=== PATIENT | female | born 2000 | race Caucasian/White ===

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

== ENCOUNTER 2022-02-21 10:30 | Outpatient (RCR) | payer BC, SELFPAY ==
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
[2022-02-07 12:12] VITALS: BP 124/68; PULSE 80; RESP 16; TEMP 36.9
[2022-02-07 12:18] VITALS: BMI 41.8
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
--- NOTE | 2022-02-12 17:52 | P.PNPSP_ITS ---
Subjective Subjective Date of Service: 02/12/22 Reason For Visit: MDD,DASHAWN Interim History: patient presents for follow up Reports she is doing well in treatment and finds groups to be very helpful Did report some challenges with processing traumatic event that she hopes to work through during her time here Does not have any concerns related to medications at this time. Review of Systems Constitutional: Reports as per HPI and Reports no additional constitutional complaints Mental Status Exam Mental Status Exam Narrative: Well-developed, overweight female, in NAD. No tics or tremors, no abnormal movements, gait/ambulation normal. Patient Appearance: Appropriate Patient Orientation: Person, Place, Time and Situation Level of Consciousness: Appropriate Patient Behavior: Appropriate, Cooperative and Good Eye Contact Mood Description: Anxious Affect Description: Calm Patient Cognition Impaired: No Ability to Follow Directions: Good Speech Pattern: Clear, Appropriate and Coherent Memory Description: Intact Hallucinations: None Delusions: Not Present Thought Process: Intact Judgement: Fair Diagnostics Vital Signs (24Hr): BMI result Body Mass Index 41.8 Assessment & Plan Assessment & Plan (1) Post-traumatic stress disorder, unspecified: Status: Acute Code(s): F43.10 - Post-traumatic stress disorder, unspecified Assessment and Plan: * follow up as needed * no medication changes needed Certification I certify that partial hospital treatment is medically necessary due to the symptoms and problems resulting from the patient's mental illness and the failure to treat the patient at the partial hospital level of care would likely result in the patient requiring inpatient psychiatric care which could not be p revented at a less intensive level of care. I spent minutes with the patient and/or on the patient floor today, greater than?50% of which was spent counseling/coordinating care. Discharge Plan Discharge Attending provider: Aaron Torres Medications: New lamotrigine 25 mg tablet 25 mg PO DAILY 14 Days Qty: 14 0RF Discontinued buspirone [BuSpar] 5 mg Tablet 2.5 mg PO BID bupropion HCl [Wellbutrin SR] 100 mg Tablet Sustained-Release 12 Hr 200 mg PO DAILY hydroxyzine HCl 10 mg Tablet 10 mg PO TID PRN (Reason: Anxiety)
--- NOTE | 2022-02-13 15:07 | PC.NURSE ---
case opened in treatment team
--- NOTE | 2022-02-19 15:04 | HO.PHPPROGNO ---
Subjective Subjective Date of Service: 02/19/22 Reason For Visit: MDD,DASHAWN Medical Problems Affecting Mental Status: No Interim History: Reports has only taken Lamictal to times in past week, states that she forgets. Describes mood as ?stable today ?. Denies SI/HI, reports that she feels safe. Looking forward to going to a concert tomorrow in [place]. Finding groups helpful. Medication Compliance: Intermittent Side effects from medications: No Attending Groups: Yes Review of Systems Acute medical concerns: No Medical Review of Systems: unchanged Review of Systems Review of Systems Yes all other systems are reviewed and are negative Constitutional: Reports no additional constitutional complaints Mental Status Exam Mental Status Exam Narrative: NAD. No tics or tremors, no abnormal movements, gait/ambulation normal. Patient Appearance: Well Grooomed and Appropriate Patient Orientation: Person, Place, Time and Situation Level of Consciousness: Appropriate Patient Behavior: Appropriate, Cooperative and Good Eye Contact Mood Description: Calm and Appropriate Affect Description: Appropriate Patient Cognition Impaired: No Ability to Follow Directions: Good Speech Pattern: Clear, Appropriate and Coherent Memory Description: Intact Hallucinations: None Delusions: Not Present Thought Process: Intact Thought Content: positive for Intact Depressive Symptoms: Increased Anxiety Judgement: Fair Diagnostics Vital Signs (24Hr): BMI result Body Mass Index 41.8 Assessment & Plan Assessment & Plan (1) Major depressive disorder, recurrent severe without psychotic features: Status: Acute Code(s): F33.2 - Major depressive disorder, recurrent severe without psychotic features Assessment and Plan: Reports has only taken Lamictal to times in past week, states that she forgets. Reviewed medication, provided education. Encourage patient to take the 25 mg daily consistently, as this will be needed prior to being able to the increased dose to 50 mg daily. She stated that she would begin to take it daily. Describes mood as ?stable today ?. Patient states that she does not have any concerns at this time. Denies SI/HI, reports that she feels safe. Looking forward to going to a concert tomorrow in [place]. Finding groups helpful. (2) Post-traumatic stress disorder, unspecified: Status: Acute Code(s): F43.10 - Post-traumatic stress disorder, unspecified (3) DASHAWN (generalized anxiety disorder): Status: Acute Code(s): F41.1 - Generalized anxiety disorder Plan 1. Continue with current [facility] plan of care. 2. Patient encouraged to take prescribed Lamictal consistently. 3. Follow-up as per protocol. Patient educated on: diagnosis, medication risk/benefits and therapeutic strategies Informed Consent: understands Reason for contiued partial hosp. stay Substantial Risk for: inability to function and rapid decompensation Certification I certify that partial hospital treatment is medically necessary due to the symptoms and problems resulting from the patient's mental illness and the failure to treat the patient at the partial hospital level of care would likely result in the patient requiring inpatient psychiatric care which could not be prevented at a less intensive level of care. I spent minutes with the patient and/or on the patient floor today, greater than?50% of which was spent counseling/coordinating care. Discharge Plan Discharge Attending provider: Aaron Torres Medications: New lamotrigine 25 mg tablet 25 mg PO DAILY 14 Days Qty: 14 0RF Discontinued buspirone [BuSpar] 5 mg Tablet 2.5 mg PO BID bupropion HCl [Wellbutrin SR] 100 mg Tablet Sustained-Release 12 Hr 200 mg PO DAILY hydroxyzine HCl 10 mg Tablet 10 mg PO TID PRN (Reason: Anxiety)
--- NOTE | 2022-02-24 12:11 | PC.NURSE ---
Patient called out sick to the program stated she tested positive for Covid last night. Stated she took a test on Thursday and was negative. Patient reports she has cold sxs, sore throat and cough, unsure if she has a fever. Denied symptoms of Covid on Thursday when screened prior to coming into the program and no fever. In addition, patient was out on as she went to a concert in [place]. Patient will be discharged. Charo Wu and Monique aGgnon are aware.
== END 2022-02-21 23:59 | disposition home or self-care (01) ==
LOC: HO.PHPA 10:30
PROVIDERS: Visit Provider Psychiatry & Neurology Psychiatry
DX: F33.2 Major depressive disorder, recurrent severe without psychotic features (principal); F43.10 Post-traumatic stress disorder, unspecified; F41.1 Generalized anxiety disorder; Z79.899 Other long term (current) drug therapy
CPT/HCPCS: 90791; 90853

== ENCOUNTER 2022-07-23 13:30 | Outpatient (RCR) | payer BC, SELFPAY ==
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
[2022-07-02 10:39] VITALS: BP 100/72; PULSE 96; TEMP 36.8
[2022-07-02 10:46] VITALS: BMI 39.8
--- NOTE | 2022-07-02 11:28 | PC.ADMIT ---
Patient is a 22 year old female who was reportedly referred to [facility] by crisis d/t depression with passive SI and self harming behaviors d/t life stressors. Patient reportedly had multiple plans including sticking metal into a electrical outlet, cut wrists, or jump off a bridge d/t multiple life stresses. See Integrative Assessment for more information. Patient holds a dx of MDD, severe, PTSD, and DASHAWN. Patient is alert and oriented x4. Calm and cooperative. Presented with depressed mood and anxious affect. Denied SI at present, reports having passive thoughts, denied plan or intent. Patient given a copy of her safety plan if needed. Patient reports she has cut down on marijuana use . Uses every two weeks at present. Patient smoking 1-3 cigarettes a day. Gave patient information on smoking cessation. Medications reconciled with patient and patient's pharmacy.
--- NOTE | 2022-07-03 16:08 | HO.PHPIOP ---
Case opened in treatment team.
--- NOTE | 2022-07-10 10:27 | HO.PHPPROGNO ---
Subjective Subjective Date of Service: 07/10/22 Reason For Visit: MDD,DASHAWN Medical Problems Affecting Mental Status: No Interim History: Depressed mood and affect. Issues with her friends. No SI, no safety concerns. Reports that she feels safe. Wants to be tested for ADD. Medication Compliance: Yes Side effects from medications: No Attending Groups: Yes Review of Systems Acute medical concerns: No Medical Review of Systems: unchanged Review of Systems Review of Systems Yes all other systems are reviewed and are negative Constitutional: Reports no additional constitutional complaints Mental Status Exam Mental Status Exam Narrative: NAD. No SI/HI/SIB, feels safe Patient Appearance: Appropriate Patient Orientation: Person, Place, Time and Situation Level of Consciousness: Appropriate Patient Behavior: Appropriate, Cooperative and Good Eye Contact Mood Description: Depressed Affect Description: Depressed Patient Cognition Impaired: No Ability to Follow Directions: Good Speech Pattern: Appropriate Memory Description: Intact Hallucinations: None Delusions: Not Present Thought Process: Intact Thought Content: positive for Intact Depressive Symptoms: Increased Anxiety, Loss of Int. in Activity, Loss of Energy and Difficulty Concentrating Judgement: Fair Diagnostics Vital Signs (24Hr): BMI result Body Mass Index 39.8 Assessment & Plan Assessment & Plan (1) Major depressive disorder, recurrent severe without psychotic features: Status: Acute Code(s): F33.2 - Major depressive disorder, recurrent severe without psychotic features Assessment and Plan: Continues with depressed mood an affect. No overt PTSD symptoms at this time common no complaints regarding nightmares, hypervigilance, etc.. Has had issues with her friends, describes them as ?now my former friends ?. States this is affecting her mood. Denies any thought of harm to self or others, no safety concerns. Reports has been struggling to get out of bed due to depression symptoms. Discussed increasing sertraline dose. She was agreeable for dose increase from 50 mg daily to 75 mg daily. (2) Post-traumatic stress disorder, unspecified: Status: Acute Code(s): F43.10 - Post-traumatic stress disorder, unspecified (3) DASHAWN (generalized anxiety disorder): Status: Acute Code(s): F41.1 - Generalized anxiety disorder (4) ADHD (attention deficit hyperactivity disorder): Status: Acute Code(s): F90.9 - Attention-deficit hyperactivity disorder, unspecified type Assessment and Plan: Patient states that she wishes to have formal testing for ADHD. It was explained that this can be completed to her outpatient providers. Suggested she ask them for a referral for testing/full assessment. During encounter patient was able to focus on topic. Asked why she believes this is a concern, stated that she has difficulty completing tasks, focusing. Discussed medications such as Wellbutrin. She reports she has trialed this medication in the past and did not like it. Plan 1. Continue with current [facility] plan of care. 2. Increase sertraline to 75 mg daily. 3. Follow-up as per protocol. Patient educated on: diagnosis, medication risk/benefits and therapeutic strategies Informed Consent: understands Reason for contiued partial hosp. stay Substantial Risk for: inability to function and rapid decompensation Certification I certify that partial hospital treatment is medically necessary due to the symptoms and problems resulting from the patient's mental illness and the failure to treat the patient at the partial hospital level of care would likely result in the patient requiring inpatient psychiatric care which could not be prevented at a less intensive level of care. Total time managing care of this patient today ___20_ minutes. Discharge Plan Discharge Attending provider: Aaron Torres Medications: New sertraline 50 mg tablet 75 mg PO DAILY Qty: 45 0RF Discontinued lamotrigine 25 mg tablet 25 mg PO DAILY 14 Days Qty: 14 0RF sertraline 50 mg tablet 1 tab PO DAILY No Action clonidine HCl 0.1 mg tablet 1 - 2 tab PO BEDTIME PRN (Reason: Anxiety) ferrous gluconate 324 mg (38 mg iron) tablet 1 tab PO DAILY
--- NOTE | 2022-07-17 10:57 | HO.PHPPROGNO ---
Subjective Subjective Date of Service: 07/17/22 Reason For Visit: MDD,DASHAWN Medical Problems Affecting Mental Status: No Interim History: Tearful Reports increased anxiety, having a panic attack after morning group. No SI, no safety concerns. Satisfied with current medications. Medication Compliance: Yes Side effects from medications: No Attending Groups: Yes Review of Systems Acute medical concerns: No Medical Review of Systems: unchanged Review of Systems Review of Systems Yes all other systems are reviewed and are negative Constitutional: Reports no additional constitutional complaints Mental Status Exam Mental Status Exam Narrative: No SI/HI/SIB, feels safe Patient Appearance: Appropriate Patient Orientation: Person, Place, Time and Situation Level of Consciousness: Appropriate Patient Behavior: Cooperative, Good Eye Contact and Crying Mood Description: Anxious Affect Description: Anxious Patient Cognition Impaired: No Ability to Follow Directions: Good Speech Pattern: Appropriate Memory Description: Intact Hallucinations: None Delusions: Not Present Thought Process: Intact Thought Content: positive for Intact Depressive Symptoms: Increased Anxiety, Loss of Int. in Activity, Loss of Energy and Difficulty Concentrating Judgement: Fair Diagnostics Vital Signs (24Hr): BMI result Body Mass Index 39.8 Assessment & Plan Assessment & Plan (1) Major depressive disorder, recurrent severe without psychotic features: Status: Acute Code(s): F33.2 - Major depressive disorder, recurrent severe without psychotic features Assessment and Plan: Tearful. Reports that today was her grandmother's birthday, and that she misses her. Having a difficult day. Reports increased anxiety, having a panic attack after morning group. We reviewed deep breathing, other coping skills. She reports listening to music is helpful, has earbuds. No SI, no safety concerns. Satisfied with current medications. Tolerating increase sertraline well, states she feels it is helping to improve depression symptoms overall. (2) Post-traumatic stress disorder, unspecified: Status: Acute Code(s): F43.10 - Post-traumatic stress disorder, unspecified (3) DASHAWN (generalized anxiety disorder): Status: Acute Code(s): F41.1 - Generalized anxiety disorder Plan 1. Continue with current [facility] plan of care. 2. Continue with current medications as prescribed. 3. Follow-up as per protocol. Patient educated on: diagnosis, medication risk/benefits and therapeutic strategies Informed Consent: understands Reason for contiued partial hosp. stay Substantial Risk for: inability to function and rapid decompensation Certification I certify that partial hospital treatment is medically necessary due to the symptoms and problems resulting from the patient's mental illness and the failure to treat the patient at the partial hospital level of care would likely result in the patient requiring inpatient psychiatric care which could not be prevented at a less intensive level of care. Total time managing care of this patient today __20__ minutes. Discharge Plan Discharge Attending provider: Aaron Torres Medications: New sertraline 50 mg tablet 75 mg PO DAILY Qty: 45 0RF Discontinued lamotrigine 25 mg tablet 25 mg PO DAILY 14 Days Qty: 14 0RF sertraline 50 mg tablet 1 tab PO DAILY No Action clonidine HCl 0.1 mg tablet 1 - 2 tab PO BEDTIME PRN (Reason: Anxiety) ferrous gluconate 324 mg (38 mg iron) tablet 1 tab PO DAILY
--- NOTE | 2022-07-22 15:27 | HO.PHPPROGNO ---
Subjective Subjective Date of Service: 07/22/22 Reason For Visit: MDD,DASHAWN Medical Problems Affecting Mental Status: No Interim History: Patient reports feeling anxious, depressed. Says was suicidal last night. Had a plan at that time to cut her wrists, but no intent. Reports that she feels safe today, but continues with passive SI. Negative self talk, feels her parents are proud of her brother but ashamed of her. Medication Compliance: Yes Side effects from medications: No Attending Groups: Yes Review of Systems Acute medical concerns: No Medical Review of Systems: unchanged Review of Systems Review of Systems Yes all other systems are reviewed and are negative Constitutional: Reports no additional constitutional complaints Mental Status Exam Mental Status Exam Patient Appearance: Appropriate Patient Orientation: Person, Place, Time and Situation Level of Consciousness: Appropriate Patient Behavior: Appropriate, Cooperative and Good Eye Contact Mood Description: Depressed and Anxious Affect Description: Depressed and Anxious Patient Cognition Impaired: No Ability to Follow Directions: Good Speech Pattern: Appropriate Memory Description: Intact Hallucinations: None Delusions: Not Present Thought Process: Intact Thought Content: positive for Intact and positive for Suicidal Ideation (passive) Depressive Symptoms: Increased Anxiety, Loss of Int. in Activity, Feelings of Worthlessness, Thoughts of /Suicide, Low Self Esteem, Loss of Energy and Difficulty Concentrating Judgement: Fair Diagnostics Vital Signs (24Hr): BMI result Body Mass Index 39.8 Assessment & Plan Assessment & Plan (1) Major depressive disorder, recurrent severe without psychotic features: Status: Acute Code(s): F33.2 - Major depressive disorder, recurrent severe without psychotic features Assessment and Plan: Patient reports feeling anxious, depressed. Continues to struggle with feeling inadequate. Isolated, feels she does not have a supportive network in either her family or any friends. Discussed increasing sertraline at this time. She is agreeable for dose increase to 100 mg daily. Says was suicidal last night. Had a plan at that time to cut her wrists, but no intent. Reports that she would have used a kitchen knife, but she does not want to harm herself. Discussed a safety plan including calling crisis, telling her parent when she feels unsafe. Reports that she feels safe today, but continues with passive SI. Negative self talk, feels her parents are proud of her brother but ashamed of her. Expressed concerns regarding plans after discharge from program. Discussed attending while [place], as they have groups, support where she may feel heard and accepted. She said she would consider this. (2) Post-traumatic stress disorder, unspecified: Status: Acute Code(s): F43.10 - Post-traumatic stress disorder, unspecified (3) DASHAWN (generalized anxiety disorder): Status: Acute Code(s): F41.1 - Generalized anxiety disorder (4) ADHD (attention deficit hyperactivity disorder): Status: Acute Code(s): F90.9 - Attention-deficit hyperactivity disorder, unspecified type Plan 1. Continue with current [facility] plan care. 2. Increase sertraline to 100 mg daily. 3. Follow-up as per protocol. Patient educated on: diagnosis, medication risk/benefits and therapeutic strategies Informed Consent: understands Reason for contiued partial hosp. stay Substantial Risk for: harm to self, inability to function and rapid decompensation Certification I certify that partial hospital treatment is medically necessary due to the symptoms and problems resulting from the patient's mental illness and the failure to treat the patient at the partial hospital level of care would likely result in the patient requiring inpatient psychiatric care which could not be prevented at a less intensive level of care. Total time managing care of this patient today _20___ minutes. Discharge Plan Discharge Attending provider: Aaron Torres Medications: New sertraline 100 mg tablet 100 mg PO DAILY Qty: 30 0RF Discontinued lamotrigine 25 mg tablet 25 mg PO DAILY 14 Days Qty: 14 0RF sertraline 50 mg tablet 1 tab PO DAILY No Action clonidine HCl 0.1 mg tablet 1 - 2 tab PO BEDTIME PRN (Reason: Anxiety) ferrous gluconate 324 mg (38 mg iron) tablet 1 tab PO DAILY
== END 2022-07-23 23:59 | disposition home or self-care (01) ==
LOC: HO.PHPA 13:30
PROVIDERS: Visit Provider Psychiatry & Neurology Psychiatry
DX: F33.2 Major depressive disorder, recurrent severe without psychotic features (principal); F43.10 Post-traumatic stress disorder, unspecified; F41.1 Generalized anxiety disorder; F90.9 Attention-deficit hyperactivity disorder, unspecified type; Z79.899 Other long term (current) drug therapy
CPT/HCPCS: 90791; 90853

== ENCOUNTER 2022-09-18 07:59 | Outpatient (REF) | payer BC, SELFPAY ==
--- NOTE | ~2022-09-18 | XR_ITS ---
EXAMINATION: XR ABDOMEN KUB CLINICAL INDICATION: Renal calculus COMPARISON: CT abdomen of November 02, 2020 and renal ultrasound of August 29, 2022 TECHNIQUE: AP view of the abdomen. FINDINGS: The bowel gas pattern is normal with no evidence of ileus or obstruction. No unusual soft tissue calcifications are noted. The bones are unremarkable. Psoas margins intact. XR/XR KUB IMPRESSION: No renal or ureteral calculi appreciated on this plain film study.
== END 2022-09-18 08:00 | disposition home or self-care (01) ==
LOC: HO.XRAY 07:59
PROVIDERS: PCP Pediatrics; Visit Provider Urology
DX: N20.0 Calculus of kidney (principal); N23 Unspecified renal colic
CPT/HCPCS: 74018

== ENCOUNTER → 2023-02-20 10:15 | Outpatient (BNV) | payer BC, SELFPAY | PROVIDERS: Visit Provider Psychiatry & Neurology Psychiatry | DX: F33.2 Major depressive disorder, recurrent severe without psychotic features (principal); F43.10 Post-traumatic stress disorder, unspecified | CPT/HCPCS: 90792 ==

== ENCOUNTER 2023-03-05 09:45 | Outpatient (RCR) | payer BC, SELFPAY ==
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
[2023-02-23 12:03] VITALS: BMI 39.1
[2023-02-23 12:04] VITALS: BP 110/78; PULSE 84; TEMP 37.1
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
--- NOTE | 2023-02-26 16:33 | HO.PHP ---
Clients case was reviewed and opened today in treatment team.
--- NOTE | 2023-03-05 16:50 | HO.PHP ---
[facility] staff asked Lourdes if she would be willing to call with her, her OP therapist to see if she is able to increase services for this upcoming week. Lourdes was in agreement and provided the clinician with Tammy Desir, OP therapist, number. [facility] staff member left a message for Tammy and is awaiting a response.
--- NOTE | 2023-03-18 09:25 | HO.PHP ---
[facility] staff returned a phone call to [facility] PCP office and left a VM. [facility] staff is awaiting a phone call back.
--- NOTE | 2023-03-19 16:56 | HO.PHP ---
PHP staff received a voice message from [facility]'s PCP office stating they would like additional information faxed over regarding a summary of care and her diagnosis.
== END 2023-03-05 23:59 | disposition home or self-care (01) ==
LOC: HO.PHPA 09:45
PROVIDERS: Visit Provider Psychiatry & Neurology Psychiatry
DX: F33.2 Major depressive disorder, recurrent severe without psychotic features (principal); F43.10 Post-traumatic stress disorder, unspecified
CPT/HCPCS: 90791; 90853

== ENCOUNTER 2023-07-30 17:07 | Outpatient (REF) | payer BC, SELFPAY ==
[2023-07-30 17:16] LABS: MANUAL DIFF FLAG NO
[2023-07-30 17:44] LABS: Basophils Absolute Auto 0.1 X10*3/uL (0.0-0.2); Basophils Percent Auto 0.6 % (0-2); Eosinophils Absolute Auto 0.1 X10*3/uL (0.0-0.4); Eosinophils Percent Auto 1.7 % (0-4); Hematocrit 38.1 % (37.0-47.0); Hemoglobin 12.2 g/dl (12.0-16.0); Imm Gran Abs Auto 0.03 X10*3/uL (0.00-0.03); Imm Gran Pct Auto 0.4 % (0.0-0.4); Lymphocytes Percent Auto 24.3 % (20-40); Mean Corpuscular Hemoglobin 26.5 pg (27.0-33.0); Mean Corpuscular Volume 82.6 fL (80.0-98.0); Mean Platelet Volume 9.9 fL (9.4-12.3); Monocytes Absolute Auto 0.6 X10*3/uL (0.1-1.2); Monocytes Percent Auto 7.5 % (2-11); Neutrophils Absolute Auto 5.5 x10*3/uL (2.0-8.3); Neutrophils Percent Auto 65.5 % (45-73); Platelet Count 393 X10*3/uL (160-400); Red Blood Count 4.61 X10*6/uL (4.20-5.50); Red Cell Distribution Width 15.6 % (11.0-16.0); White Blood Count 8.3 X10*3/uL (4.8-10.8)
[2023-07-30 18:03] LABS: Alanine Aminotransferase 19 U/L (0-31); Albumin Level 4.2 g/dL (3.5-5.0); Alkaline Phosphatase 91 U/L (39-117); Anion Gap 11 (12-20); Aspartate Amino Transferase 15 U/L (5-31); Bilirubin Total 0.6 mg/dL (0.0-1.0); Blood Urea Nitrogen 9 mg/dL (9-16); Calcium 9.4 mg/dL (8.4-10.2); Carbon Dioxide 22 mmol/L (22-29); Chloride 110 mmol/L (96-108); Cholesterol 150 mg/dL (<200); Estimated Glomerular Filt Rate > 60; Glucose Random 84 mg/dL (60-115); HDL Cholesterol 38 mg/dL (>40); LDL Cholesterol Calculated 99 mg/dL (<100); Sodium 139 mmol/L (135-145); Total Protein 7.9 g/dL (6.5-8.0); Triglycerides 65 mg/dL (<150); Uric Acid 4.2 mg/dL (2.4-5.7)
== END 2023-07-30 17:08 | disposition home or self-care (01) ==
LOC: HO.LAB 17:07
PROVIDERS: PCP Internal Medicine Medical Oncology; Visit Provider Internal Medicine Medical Oncology
DX: N20.0 Calculus of kidney (principal); F43.10 Post-traumatic stress disorder, unspecified; E66.9 Obesity, unspecified
CPT/HCPCS: 36415; 80053; 80061; 84550; 85025

== ENCOUNTER 2023-12-28 04:05 | Emergency (ER) | payer BC, SELFPAY ==
--- NOTE | ~2023-12-28 | CT_ITS ---
EXAMINATION: CT ABDOMEN AND PELVIS WITHOUT CONTRAST CLINICAL INFORMATION: Right flank pain. COMPARISON: CT scan of the abdomen dated 11/02/2020 KUB dated 09/18/2022. TECHNIQUE: Multidetector volumetric imaging was performed from the superior aspect of the liver through the pubic symphysis. Sagittal and coronal reformatted images were obtained on the technologist workstation. This CT examination was performed using dose optimization techniques as appropriate, variously including the following: *Automated exposure control *Adjustment of mA and/or kV according to patient size (this includes techniques or standardized protocols for targeted exams where dose is matched to indication/reason for exam; i.e. extremities or head) *Use of iterative reconstruction technique DLP: 727.42 mGy-cm. FINDINGS: LUNG BASES: The visualized lung bases are unremarkable. LIVER, GALLBLADDER, AND BILIARY TREE: The liver is normal in size, shape, and attenuation. No focal hepatic lesion on noncontrast imaging. No biliary ductal dilatation is present. The gallbladder is unremarkable with no evidence of radiopaque gallstones, gallbladder wall thickening, or obvious pericholecystic inflammatory changes. PANCREAS: Unremarkable on noncontrast imaging. SPLEEN: Unremarkable. ADRENAL GLANDS: Unremarkable on noncontrast imaging. KIDNEYS AND URETERS: The kidneys are normal in size, shape, and attenuation. There is a nonobstructing 0.3 cm lower pole right renal calcification with mean attenuation values of 242 Hounsfield units, new from the prior CT scan and located at the distance of 11.2 cm from the overlying skin surface in the right lateral mid axillary line. No additional renal calculi seen bilaterally. No hydronephrosis or hydroureter seen. No ureteral calculi. No perinephric stranding. BLADDER: Unremarkable. PELVIC VISCERA: Small amount of gas seen within the vagina, likely due to exogenous introduction. Uterus and adnexa are normal.. GASTROINTESTINAL TRACT: The small and large bowel are unremarkable. The appendix is unremarkable. ABDOMINAL WALL: There is a tiny fat-containing umbilical hernia. LYMPH NODES, VASCULAR: Unremarkable. OSSEOUS STRUCTURES: Unremarkable. CT/CT abdomen pelvis wo IV con IMPRESSION: * Nonobstructing 0.3 cm lower pole right renal calcification is seen. * No evidence of obstructive uropathy. * Tiny fat-containing umbilical hernia.
[2023-12-28 04:19] VITALS: BP 130/77; PULSE 107; RESP 18; TEMP 36.9; O2SAT 98; BMI 37.6
[2023-12-28 04:41] LABS: MANUAL DIFF FLAG NO
[2023-12-28 04:42] LABS: Basophils Absolute Auto 0.1 X10*3/uL (0.0-0.2); Basophils Percent Auto 0.7 % (0-2); Eosinophils Absolute Auto 0.3 X10*3/uL (0.0-0.4); Eosinophils Percent Auto 2.6 % (0-4); Hemoglobin 11.4 g/dl (12.0-16.0); Imm Gran Abs Auto 0.03 X10*3/uL (0.00-0.03); Imm Gran Pct Auto 0.3 % (0.0-0.4); Lymphocytes Absolute Auto 3.1 X10*3/uL (1.2-4.9); Lymphocytes Percent Auto 29.6 % (20-40); Mean Corpuscular HGB Conc 32.6 g/dl (31.0-35.0); Mean Corpuscular Hemoglobin 26.7 pg (27.0-33.0); Mean Platelet Volume 9.7 fL (9.4-12.3); Monocytes Absolute Auto 0.6 X10*3/uL (0.1-1.2); Monocytes Percent Auto 6.2 % (2-11); Neutrophils Absolute Auto 6.3 x10*3/uL (2.0-8.3); Neutrophils Percent Auto 60.6 % (45-73); Platelet Count 387 X10*3/uL (160-400); Red Blood Count 4.27 X10*6/uL (4.20-5.50); Red Cell Distribution Width 15.1 % (11.0-16.0); White Blood Count 10.4 X10*3/uL (4.8-10.8)
[2023-12-28 04:43] LABS: Appearance Urine Clear; Color Urine Yellow; Glucose Urine UA Negative (Negative); Leukocyte Esterase Urine Negative (Negative); Nitrite Urine Negative (Negative); PH 5.5 (5.0-9.0); Specific Gravity - Urine 1.015 (1.005-1.025); Urine Blood Negative (Negative); Urine Ketones Negative (Negative); Urine Protein Negative (Neg-Trace)
[2023-12-28 05:02] LABS: Alanine Aminotransferase 27 U/L (0-31); Albumin Level 4.1 g/dL (3.5-5.0); Alkaline Phosphatase 80 U/L (39-117); Anion Gap 14 (12-20); Aspartate Amino Transferase 17 U/L (5-31); Bilirubin Total 0.4 mg/dL (0.0-1.0); Blood Urea Nitrogen 10 mg/dL (9-16); Calcium 9.3 mg/dL (8.4-10.2); Carbon Dioxide 21 mmol/L (22-29); Chloride 107 mmol/L (96-108); Creatinine Clr Calc Pharmacy 142.3; Estimated Glomerular Filt Rate > 60; Glucose Random 90 mg/dL (60-115); Lipase 16 U/L (8-78); Sodium 138 mmol/L (135-145); Total Protein 7.6 g/dL (6.5-8.0)
[2023-12-28 05:10] LABS: HCG Quantitative < 2 mIU/mL
[2023-12-28 06:03] VITALS: BP 111/63; PULSE 100; RESP 16; TEMP 37; O2SAT 99
[2023-12-28] MEDS: ondansetron HCL 4 MG/2 ML VIAL IVPUSH (06:12)
[2023-12-28] MEDS: Ketorolac Tromethamine 30 MG/ML VIAL IVPUSH (06:12)
[2023-12-28 07:12] VITALS: BP 119/72; PULSE 109; RESP 20; TEMP 36.8; O2SAT 100
--- NOTE | 2023-12-28 07:23 | ED_ITS ---
HPI - Abdominal Pain General Chief Complaint: Abdominal Pain Stated Complaint: r sided abd pain hx of kidney stones Time Seen by Provider: 12/28/23 06:01 Source: patient and family Mode of arrival: ambulatory Limitations: no limitations History of Present Illness ED Provider: Dr. Ni Kirkland HPI narrative: Patient comes to the emergency room complaining of 2-2 days of intermittent right-sided flank pain, right upper and lower abdominal pain. Patient states that the pain has been constant since the last 9 hours. Patient states that she has had kidney stones in the past and the pain is similar. Patient denies nausea vomiting or diarrhea. Denies hematuria or dysuria, complaining of frequency. Denies fever chills Related Data Home Medications ?Medication ?Instructions ?Recorded ?Confirmed No Known Home Meds 02/23/23 02/23/23 Allergies Allergy/AdvReac Type Severity Reaction Status Date / Time No Known Allergies Allergy Verified 12/28/23 04:21 [No Known Allergies*] Review of Systems Review of Systems Constitutional : No Weight loss, No Fever, No Chills, No Night Sweats, No Fatigue, No Malaise ENT/Mouth : No Hearing loss, No Ear Pain, No Nasal Congestion, No Sinus Pain, No Hoarseness, No sore throat, No Rhinorrhea, No Swallowing Difficulty Eyes: No Eye Pain, No Swelling, No Redness, No Foreign Body, No Discharge, No Vision Changes Cardiovascular : No Chest Pain, No SOB, No Dyspnea on Exertion, No Orthopnea, No Edema, No Palpitations Respiratory : No Cough, No Sputum, No Wheezing, No Smoke Exposure, No Dyspnea Gastrointestinal : No Nausea, No Vomiting, No Diarrhea, No Constipation, No abdominal Pain, No Hematochezia, No Melena Genitourinary : no irregular bleeding, No Dysuria, No Urinary Frequency, No Hematuria, No Urinary Incontinence, No Urgency, complaining of right-sided Flank Pain, No Urinary Flow Changes, No Hesitancy Musculoskeletal : No joint pain, No Myalgias, No Joint Swelling Skin : No Skin Lesions, No rash Neuro : No Weakness, No Numbness, No Paresthesias, No Loss of Consciousness, No Dizziness, No Headache Psych : No Anxiety/Panic, No Depression, No SI/HI/AH/VH, No Social Issues, Heme/Lymph: No Bruising, No Bleeding,No Lymphadenopathy Endocrine : No Polyuria, No Polydipsia, No Temperature Intolerance PMFSH Past Medical History Medical History GERD (gastroesophageal reflux disease) Nexplanon in place Depression Anxiety Anemia Appendicitis Social History Social History Household Members: Family Household Members Other:: reports her best-friend sometimes lives with family Alcohol intake: current Alcohol intake frequency: holidays/special occasions only Patient Tobacco Use Status: Current everyday Tobacco user Tobacco use type: Cigarette Smoked in Last 30 Days: Yes Use of substances other than those prescribed or required for medical reasons: Yes Substance Use Type: Marijuana Advance Directives: No Advance Directives Information Provided: No Patient : No Physical Exam ED Vital Signs: Vital Signs - 24 hr 12/28/23 04:19 12/28/23 06:03 12/28/23 07:12 Temperature 98.5 F 98.6 F 98.3 F Pulse Rate 107 H 100 109 H Respiratory Rate 18 16 20 Blood Pressure 130/77 111/63 119/72 Pulse Oximetry 98 99 100 Oxygen Delivery Method Room Air Room Air Room Air BMI result Body Mass Index 37.6 Const Other: Appearance: Alert. Oriented X3. No acute distress. Eyes: Pupils equal, round and reactive to light. ENT: Pharynx normal. Neck: Normal inspection. Neck supple. No lymph nodes noted. No crepitus CVS: Normal heart rate and rhythm. Pulses normal. Normal S1 and S2 Respiratory: No respiratory distress. Breath sounds normal. No Wheezing. No rales Abdomen: Soft and nontender. No rigidity. No distention. CVA tenderness in the right, negative Esposito's sign, no pain at the McBurney's point Skin: Skin warm and dry. Normal skin color. Normal skin turgor. Extremities: No lower extremity edema. No Lacerations. No Rash Neuro: Oriented X 3. No motor deficit. No sensory deficit. Moving all extremities. No slurred speech. CN 2 through 12 grossly intact Psych: calm, cooperative, normal affect Course Course Course Narrative: Patient was given IV ketorolac and Zofran Medical Decision Making Medical Decision Making MDM Narrative: My interpretation of labs, no significant or obvious abnormality with the hematology and chemistry, urinalysis negative for UTI or blood in the urine -given patient's symptoms, we ordered a CT scan. My interpretation: There kidney stones in the pull on the right. However, no obvious ureterolithiasis. Radiology report pending. -patient is source of pain musculoskeletal versus appendicitis versus renal colic -sign-out given to my colleague Dr. Hunt Lab Data 12/28/23 04:35 12/28/23 04:35 Labs: Lab Results 12/28/23 Range/Units 04:35 WBC 10.4 (4.8-10.8) X10*3/uL RBC 4.27 (4.20-5.50) X10*6/uL Hgb 11.4 L (12.0-16.0) g/dl Hct 35.0 L (37.0-47.0) % MCV 82.0 (80.0-98.0) fL MCH 26.7 L (27.0-33.0) pg MCHC 32.6 (31.0-35.0) g/dl RDW 15.1 (11.0-16.0) % Plt Count 387 (160-400) X10*3/uL MPV 9.7 (9.4-12.3) fL Immature Gran % (Auto) 0.3 (0.0-0.4) % Neut % (Auto) 60.6 (45-73) % Lymph % (Auto) 29.6 (20-40) % Taney % (Auto) 6.2 (2-11) % Eos % (Auto) 2.6 (0-4) % Baso % (Auto) 0.7 (0-2) % Lymph # (Auto) 3.1 (1.2-4.9) X10*3/uL Taney # (Auto) 0.6 (0.1-1.2) X10*3/uL Eos # (Auto) 0.3 (0.0-0.4) X10*3/uL Baso # (Auto) 0.1 (0.0-0.2) X10*3/uL Abs Immat Gran (auto) 0.03 (0.00-0.03) X10*3/uL Absolute Neuts (auto) 6.3 (2.0-8.3) x10*3/uL Absolute Nucleated RBC 0.000 (0.0-0.012) X10*3/uL Nucleated RBC % (auto) 0.0 (0.0-0.2) /100WBC Sodium 138 (135-145) mmol/L Potassium 4.0 (3.3-5.1) mmol/L Chloride 107 (96-108) mmol/L Carbon Dioxide 21 L (22-29) mmol/L Anion Gap 14 (12-20) BUN 10 (9-16) mg/dL Creatinine 0.69 (0.5-1.4) mg/dL Estim Creat Clear Calc 142.3 Estimated GFR > 60 Random Glucose 90 (60-115) mg/dL Calcium 9.3 (8.4-10.2) mg/dL Total Bilirubin 0.4 (0.0-1.0) mg/dL AST 17 (5-31) U/L ALT 27 (0-31) U/L Alkaline Phosphatase 80 (39-117) U/L Total Protein 7.6 (6.5-8.0) g/dL Albumin 4.1 (3.5-5.0) g/dL Lipase 16 (8-78) U/L Beta HCG, Quant < 2 mIU/mL Urine Color Yellow Urine Appearance Clear Urine pH 5.5 (5.0-9.0) Ur Specific Swengel 1.015 (1.005-1.025) Urine Protein Negative (Neg-Trace) mg/dL Urine Glucose (UA) Negative (Negative) mg/dL Urine Ketones Negative (Negative) mg/dL Urine Blood Negative (Negative) Urine Nitrite Negative (Negative) Ur Leukocyte Esterase Negative (Negative) Medications Administered Discontinued Medications Generic Name Dose Route Start Last Admin Trade Name Freq PRN Reason Stop Dose Admin Ketorolac Tromethamine 30 mg 12/28/23 06:06 12/28/23 06:12 Ketorolac Tromethamine 30 Mg/Ml Vial IVPUSH 12/28/23 06:07 30 mg ONCE ONE Administration Ondansetron HCl 4 mg 12/28/23 06:06 12/28/23 06:12 Ondansetron Hcl 4 Mg/2 Ml Vial IVPUSH 12/28/23 06:07 4 mg ONCE ONE Administration Critical Care Time Critical Care Time Critical Care Time: Yes Total Critical Care Time: 30 Attestation: I have personally provided critical care time. Time includes review of lab data, radiology results, discussion with consultants, and monitoring for potential decompensation. Intervention performed as documented. Discharge Plan Discharge Clinical Impression: Flank pain Patient Disposition: Still a Patient Prescriptions: No Action No Known Home Meds Print Language: Mongolian
[2023-12-28 08:54] VITALS: BP 119/72; PULSE 109; RESP 20; TEMP 36.8; O2SAT 100
== END 2023-12-28 08:55 | disposition home or self-care (01) ==
PROVIDERS: Emergency Medicine; Emergency Provider Emergency Medicine; PCP Internal Medicine Medical Oncology
DX: R10.11 Right upper quadrant pain (principal); R10.31 Right lower quadrant pain; R10.2 Pelvic and perineal pain; F17.210 Nicotine dependence, cigarettes, uncomplicated; Z79.899 Other long term (current) drug therapy
CPT/HCPCS: 36415; 74176; 80053; 81003; 83690; 84702; 85025; 96374; 96375; 99284; J1885; J2405

== ENCOUNTER 2025-01-18 03:20 | Emergency (ER) | payer BC, SELFPAY ==
--- OUTSIDE RECORDS SUMMARY | 2024-04-11 10:30 | XMS_ITS ---
Author Organization Wilmer Colbert III, MD Address [address] [place] [address] Care Team Providers Care Branch Operations Coordinator Name Role Phone Wilmer Colbert Primary Care Provider Allergies Allergen (clinical drug ingredient) Drug/Non Drug Allergy documented on EMR Reaction Allergy Type Onset Date Status No Known Drug Allergy Unknown Drug Allergy Active REASON FOR VISIT Follow up, Lumbar radiculopathy, Tobacco use disorder, GERD Medications Medication SIG (Take, Route, Frequency, Duration) Notes Start Date End Date Status dexAMETHasone 2 MG 1 tablet Orally 01/01/2024 Active Cyclobenzaprine HCl 10 MG 1 tablet Orall y three times a day prn back pain 01/05/2024 Active Social History Tobacco Use: Social History Observation Description Date Details (start date - stop date) Current Smoker NA - NA Sex Assigned At : Social History Observation Description Sex Assigned At Female Tobacco Use/Smoking Question Answer Notes Patient is a current smoker How often do you smoke cigarettes? every day Are you interested in quitting? Thinking about q uitting Additional Findings: Tobacco User User of moist powdered tobacco Vital Signs Temperature 97.9 degrees Fahrenheit 04/11/20 24 Blood pressure systolic 119 mm Hg 04/11/20 24 Blood pressure diastolic 77 mm Hg 024 Heart Rate 56 /min 04/11/2024 Height 63 in 04/11/2024 Weight 219 lbs 04/11/2024 BMI 38.79 kg/m2 04/11/2024 Encounters Encounter Location Date Provider Diagnosis Wilmer Colbetr III, MD [address] [place] [address] [place] [address] 04/11/2024 Wilmer Colbert Lumbar radiculopathy M54.16 ; Tobacco use disorder F17.200 ; GERD without esophagitis K21.9 and Obesity E66.9 Assessments Encounter Date Diagnosis (ICD Code) Assessment Notes Treat ment Notes Treatment Clinical Notes 04/11/2024 Lumbar radiculopathy (ICD-10 - M54.16) She continues physical therapy. The pain is slightly better. No change in her regimen was needed. 04/11/2024 Tobacco use disorder (ICD-10 - F17.200) She has been made aware of all the smoking cessation programs in the area as well ass the long-term consequences of tobacco use. 04/11/2024 GERD without esophagitis (ICD-10 - K21.9) This symptom is currently well controlled with [id number]-zkm-oxizdxo medications. 04/11/2024 Obesity (ICD-10 - E66.9) Her body mass index is 38. She has gained 2 pounds. We discussed diet and nutrition. We discussed the weight loss program. We discussed bariatric surgery. We made a plan to lose weight at a rate of one half of a pound per week to a diett restricted in fat calories and sodium. Plan Of Treatment Medication Medication Name Sig Start Date Stop Date Notes dexAMETHasone 2 MG 1 tablet Orally 01/01/2024 Cyclobenzaprine HCl 10 MG 1 tablet Orall y three times a day prn back pain 01/05/2024 Next Appt Details Follow Up: 4 Weeks, Reason: ov Provider Name:Wilmer Colbert, 08/04/2025 03:30:00 PM, [address] [place] [address] [address] [address], [place], [address], Progress Notes * ELIZABETH SPEARSDOB:2000 (23 yo F)Acc No.[id number]:04/11/2024 Progress Notes Patient: Faizan ELIZABETH EARL Provider: Elana Colbert MD :2000 A ge:23 Y S ex:Female Date:04/11/2024 Address:[address] [place], [place] [id number] Subjective: * Chief Complaints: * F ollow upLumbar radiculopathyTobacco use disorderGERD * HPI: C OVID-19 Screening: Questions H ave you experienced fever, chills, cough, sore throat, shortness of breath, difficulty breathing, muscle aches, loss of taste or smell? N o H ave you been exposed to the virus within the last 10 days? N o H ave you travelled internationally in the last 10 days? N o H ave you been exposed to COVID-19 in the past? Y es * : The patient, a 23-year-old female, presented with ongoing back pain that began prior to February 08. The pain is located in the lower back, specifically around the sciatic nerve. The severity of the pain varies from day to day, but it has been described as a constant nuisance. The patient has been attending physical therapy sessions to strengthen the muscles that support the spine, as recommended by Doctor Eleno. The patient also reported occasional heartburn and acid reflux, which she has experienced since childhood. The patient's back pain and acid reflux seem to be exacerbated by stress, such as a recent breakup. * ROS: G eneral/Constitutional: pain L umbar spine, otherwise only normal aches and pains.?Chills d enies. F atigue a dmits. F ever d enies. E NT: Decreased hearing d enies. R espiratory: Cough d enies. C ardiovascular: Chest pain with exertion d enies. D yspnea on exertion?denies. S hortness of breath d enies. G astrointestinal: Constipation o ccasional. D ecreased appetite d enies. D iarrhea d enies. A dmits H eartburn, d enies. N ausea d enies.?Rectal bleeding d enies. V omiting d enies. H ematology: bruising d enies. p etechiae d enies. S wollen glands n one have been noted. G enitourinary: Frequent urination d enies. M usculoskeletal: Muscle aches d enies. P ainful joints d enies. S ciatica d enies. W eakness d enies. S kin: Itching d enies. R rafiq d enies. S kin lesion(s)?denies. N eurologic: Difficulty speaking d enies. D izziness d enies.?Headache d enies. L ow back pain t hat is chronic. P sychiatric: Depressed mood d enies. * Medical History: * Surgical History: i mplanon Insert history * Hospitalization/Major Diagno stic Procedure: N o history * Family History: F ather: alive, TBI, diagnosed with Hyperlipidemia, HTN. M other: alive, arthritis, diagnosed with DM. S iblings: alive, sleep apnea, low testosterone, diagnosed with HTN. P aternal Grand Father: , Heart attack. P aternal Grand Mother: , depression, anxiety, diagnosed with HTN, DM. M aternal Grand Father: , diagnosed with Cancer, Hyperlipidemia, DM. M aternal Grand Mother: alive, dementia, arthritis, afib. 1 brother(s) . . A grandparent has a history of breast cancer. Both parents have back pain and degenerative disc disease. Her father is hypertensive with hyperlipidemia and is obese. Her mother is overweight with osteoarthritis. There is no family history of substance use disorder or mental illness or addiction. * Social History: T obacco Use: T obacco Use/Smoking P atient is a c urrent smoker H ow often do you smoke cigarettes? e very day A re you interested in quitting? T hinking about quitting A dditional Findings: Tobacco User U ser of moist powdered tobacco S he has no latter day objection to blood transfusion. She is not currently working. She lives at home with her parents. * Medications: T akingdexAMETHasone 2 MG Tablet 1 tablet Orally Cyclobenzaprine HCl 10 MG Tablet 1 tablet Orally three times a day prn back pain Medication List reviewed and reconciled with the patientTaking dexAMETHasone 2 MG Tablet 1 tablet Orally Taking Cyclobenzaprine HCl 10 MG Tablet 1 tablet Orally three times a day prn back pain Medication List reviewed and reconciled with the patient * Allergies: N o Known Drug Allergyno[Allergies Verified] Objective: * Vitals: H t: 63, Wt: 219, BMI:38.79, BP: 119/77, HR: 56, Temp: 97.9, Ht-cm: 160.02, Wt-k.[id number]. * Examination: G eneral Examination: GENERAL APPEARANCE: p leasant, well nourished, well developed, in no acute distress, calm and relaxed, obese, woman. HEAD: a traumatic, normocephalic. EYES: e jhonny, perrla, anicteric, conjugate. EARS: n ormal. NOSE: s eptum intact. ORAL CAVITY: n ormal, unremarkable. NECK/THYROID: n o jugular venous distention, no carotid bruit, thyroid normal. LYMPH NODES: n o enlarged lymph nodes,spleen normal. SKIN: n o suspicious lesions, anicteric. HEART: n o clicks, gallops, murmurs, or rubs, regular rhythm, S1, S2 normal, no s3, or vascular bruits. LUNGS: c lear to auscultation . BREASTS: N ot examined. ABDOMEN: b owel sounds normal, no ascites, no organomegaly, no mass, centripital obesity. RECTAL EXAM: n ot examined. MUSCULOSKELETAL: e xtremities unremarkable, no clubbing, cyanosis or edema. PERIPHERAL PULSES: n ormal. NEUROLOGIC: a lert and oriented, cranial nerves 2-12 grossly intact, deep tendon reflexes 2+ symmetrical, motor strength normal upper and lower extremities, sensory exam intact. PSYCH: a lert, oriented. Assessment: * Assessment: 1. L umbar radiculopathy - M54.16 (Primary) N otes :She continues physical therapy. The pain is slightly better. No change in her regimen was needed. 2 . T obacco use disorder - F17.200 N otes :She has been made aware of all the smoking cessation programs in the area as well ass the long-term consequences of tobacco use. 3 . G ERD without esophagitis - K21.9 N otes :This symptom is currently well controlled with hzrs-cqy-lvwycaa medications. 4 . O besity - E66.9 N otes :Her body mass index is 38. She has gained 2 pounds. We discussed diet and nutrition. We discussed the weight loss program. We discussed bariatric surgery. We made a plan to lose weight at a rate of one half of a pound per week to a diett restricted in fat calories and sodium. Plan: * Treatment: * Procedure Codes: * Preventive Medicine: Counseling: C are goal follow-up plan: Counseling for abnormal BMI given Y es Above Normal BMI Follow-up D ietary management education, guidance, and counseling, Dietary needs education, Exercise promotion: strength training, Exercise promotion: stretching, Feeding regime, Giving encouragement to exercise, Lifestyle education regarding diet, Nutrition / feeding management, Nutrition therapy, Prescribed activity/exercise education, Prescribed diet education, Prescribed dietary intake, Special diet education, Weight monitoring , Intervention, Order not done: Medical or Other reason not done S moking/Tobacco Use Patient counseled on the dangers of tobacco use and urged to quit. 1 Patient Lifestyle Goals P atient wants to quit Treatment Goals S et a quit date, Cut down by 1 cigarette a week Barriers S tress Self-Management Plan M hope a plan to cut down number of cigarettes over time and set a date to work towards quitting * Follow Up: 4 Weeks (Reason: ov) * Images: * Sign off status: Completed true * Provider: Elana Colbert MD Date: 1 Generated for Printi ng/Nahedg/eTransmitting on: 0 01/18/2025 03:51 AM EDT History and Physical Notes * HPI (History of Present Illness) Category Sub-Category Detail Notes COVID-19 Screening Questions Have you had any new onset fever, chills, cough, congestion, sore throat, shortness of breath, muscle aches?: No Have you been exposed to the virus withi n the last 10 days?: No Have you travelled internationally in e last 10 days?: No Have you been exposed to COVID-19 in the past?: Yes Examination Category Sub-Category Detail Notes General Examination GENERAL APPEARANCE: pleasant , well nourished, well developed, in no acute distress, calm and relaxed, obese, woman HEAD: atraumatic, normocep halic EYES: eomi, perrla, anicte lesvia, conjugate EARS: normal NOSE: septum intact NECK/THYROID: no jugular venous di stention, no carotid bruit, thyroid normal HEART: no clicks, gallops, murmurs, or rubs, regular rhythm, S1, S2 normal, no s3, or vascular bruits LUNGS: clear to auscultatio n ABDOMEN: bowel sounds normal, no ascites, no organomegaly, no mass, centripital obesity NEUROLOGIC: alert and oriented, cranial nerves 2-12 grossly intact, deep tendon reflexes 2+ symmetrical, motor strength normal upper and lower extremities, sensory exam intact SKIN: no suspicious lesion s, anicteric PERIPHERAL PULSES: normal BREASTS: Not examined MUSCULOSKELETAL: extremities unremark able, no clubbing, cyanosis or edema LYMPH NODES: no enlarged lymph no le,spleen normal RECTAL EXAM: not examined PSYCH: alert, oriented ORAL CAVITY: normal, unremarkable
--- NOTE | ~2025-01-18 | US_ITS ---
EXAMINATION: US RETROPERITONEUM LIMITED HISTORY: right flank pain, ? kidney stone TECHNIQUE: Real-time grayscale ultrasound imaging of the kidneys was performed and images were reviewed. COMPARISON: Correlation is made with an unenhanced CT of the abdomen dated 12/28/2023. FINDINGS: Right kidney: The right kidney measures 10.5 x 4.6 x 5.1 cm. Renal parenchymal echotexture and thickness are normal. There are no masses. There is a 3 mm calculus in the interpolar region. There is no hydronephrosis. Left Kidney: The left kidney measures 10.3 x 5.1 x 5.1 cm. Renal parenchymal echotexture and thickness are normal. There are no masses. There is no hydronephrosis or renal calculi. The urinary bladder is unremarkable. Bilateral ureteral jets are identified. US/US retroperitoneal limited IMPRESSION: 3 mm nonobstructing right renal calculus. Otherwise unremarkable retroperitoneal ultrasound. Electronically signed by: Wilmer Villatoro MD 01/18/2025 09:06 AM EDT
[2025-01-18 03:24] VITALS: BP 124/76; PULSE 110; RESP 16; TEMP 37; O2SAT 98; BMI 42.9
--- OUTSIDE RECORDS SUMMARY | 2025-01-18 03:51 | XMS_ITS | Patient Health Record ---
Author Organization [facility] Address [address] [place] [address] Care Team Providers Care Filler Shredder Helper Name Role Phone TERESA PHAN MD Primary Care Provider UnavailMONIQUE Camp Unavailable [phone] Allergies No Known Allergies Results Component Value Reference Range Notes Chlamydia/GC Amplification Reviewed date:01/12/2025 04:12:05 PM Interpretation: Performing Lab:[facility], [address], [address], [place], Phone - [phone], [facility] Notes/Report: Clinical Information:SRC: URINE Chlamydia trachomatis, LIGIA Negative Negative Neisseria gonorrhoeae, LIGIA Negative Negative PDF Report Reviewed date:01/12/2025 04:11:59 PM Interpretation: Performing Lab:[facility] [place], [address], [address], [place], Phone - [phone], Director - [facility] Notes/Report: Clinical Information:SRC: URINE Reason For Referral No Information Medications Medication SIG (Take, Route, Frequency, Duration) Notes Start Date End Date Status Nexplanon 68 MG as directed Subcutaneous inserted 12/26/21 Active Multivitamin Active Social History Tobacco Use: Social History Observation Description Date Details (start date - stop date) Never Smoker NA - NA Tobacco Use/Smoking Question Answer Notes Are you a nonsmoker Tobacco use other than smoking: Question Answer Notes Are you an other tobacco user? No AUDIT-C (Standard) Question Answer Notes Did you have a drink contain ing alcohol in the past year? Yes How often did you have a dri nk containing alcohol in the past year? Monthly or less (1 point) How many drinks did you have on a typical day when you were drinking in the past year? 1 or 2 drinks (0 point) How often did you have six o r more drinks on one occasion in the past year? Never (0 point) Points 1 Interpretation Negative Problems Problem Type SNOMED Code ICD Code Onset Dates Problem Status W/U Status Risk Notes Problem Excessive and frequent menstruation (085217803) Excessive and frequent menstruation with regular cycle (N92.0) Active confirmed Problem Dysmenorrhea (093742324) Dysmenorrhea, unspecified (N94.6) Active confirmed Problem Severe recurrent major depression without psychotic features (35706551) Major depressive disorder, recurrent severe without psychotic features (F33.2) Active confirmed Problem Hidradenitis suppurativa (78191645) Hidradenitis suppurativa (L73.2) Active confirmed Problem Family history: Blood disorder (146997440) Family history of diseases of the blood and blood-forming organs and certain disorders involving the immune mechanism (Z83.2) Active confirmed Problem COVID-19 (713731545) COVID-19 (U07.1) Active confirmed Vital Signs Temperature 98.0 degrees Fahrenheit 01/09/2025 Blood pressure diastolic 76 mm Hg 01/09/2025 Height 62 in 01/09/2025 Blood pressure systolic 114 mm Hg 01/09/2025 Weight 241 lbs 01/09/2025 BMI 44.07 kg/m2 01/09/2025 Encounters Encounter Location Date Provider Diagnosis [place] [address] [employer] [address] [address] 01/09/2025 MONIQUE POOL Encounter for gynecological examination (general) (routine) without abnormal findings Z01.419 ; Encounter for screening for infections with a predominantly sexual mode of transmission Z11.3 ; High risk bisexual behavior Z72.53 and Encounter for surveillance of implantable subdermal contraceptive Z30.46 [place] [address] [employer] [address] [address] 01/09/2025 MONIQUE POOL [place] [address] [employer] [address] [address] 01/10/2025 MONIQUE POOL Encounter for gynecological examination (general) (routine) without abnormal findings Z01.419 and Encounter for screening for infections with a predominantly sexual mode of transmission Z11.3 Assessments Encounter Date Diagnosis (ICD Code) Assessment Notes Treatment Notes Treatment Clinical Notes Section Notes 01/09/2025 Encounter for screening for infections with a predominantly sexual mode of transmission (ICD-10 - Z11.3) 01/09/2025 Encounter for gynecological examination (general) (routine) without abnormal findings (ICD-10 - Z01.419) Discussed cervical cancer screening with cytology every 3 years as per ASCCP guidelines. Advised continued annual pelvic exams. Patient encouraged to increase her level of exercise. SBE technique encouraged/taugh t. Safe sexual practices and STI prevention discussed. 01/10/2025 Encounter for gynecological examination (general) (routine) without abnormal findings (ICD-10 - Z01.419) 01/10/2025 Encounter for screening for infections with a predominantly sexual mode of transmission (ICD-10 - Z11.3) 01/09/2025 High risk bisexual behavior (ICD-10 - Z72.53) 01/09/2025 Encounter for surveillance of implantable subdermal contraceptive (ICD-10 - Z30.46) Return for replacment of Nexplanon. Reviewed risks of bleeding, infection, bruising with replacement. No hormonal changes are expected. She requests it to be inserted at a slightly different location due to intermittent discomfort at the current location. Plan Of Treatment Pending Test Test Name Order Date Test, Urine 11/17/2019 Test, Urine 12/26/2021 Chlamydia/GC Amplification-[id number] 2024 Chlamydia/GC Amplification-[id number] 2024 Next Appt Details Provider Name:MONIQUE Mohan, 01/15/2026 03:30:00 PM, [address], [address], [place], [address], Insurance Providers Payer Name Payer Address Payer Phone Subscriber Number Group Number Insured Name Patient Relationship to Insured Coverage Start Date Coverage End Date BC OF [facility] [address] [place] [address] [id number] EDWIN SPEARS Child - Insured has Financial Responsibility Medical (General) History Medical History History ICD Code Anxiety disorder, unspecified F41.9 Post-traumatic stress disorder, unspecif ied F43.10 Iron deficiency anemia, unspecified D50. 9 Major depressive disorder, recurrent sev ere without psychotic features F33.2 Hidradenitis suppurativa L73.2 COVID-19 U07.1 Surgical History Surgery Date(Month/Year)
[2025-01-18 04:02] LABS: MANUAL DIFF FLAG NO
[2025-01-18 04:03] LABS: Hematocrit 36.9 % (37.0-47.0); Hemoglobin 11.9 g/dl (12.0-16.0); Imm Gran Abs Auto 0.03 X10*3/uL (0.00-0.03); Imm Gran Pct Auto 0.3 % (0.0-0.4); Lymphocytes Absolute Auto 3.1 X10*3/uL (1.2-4.9); Mean Corpuscular HGB Conc 32.2 g/dl (31.0-35.0); Mean Corpuscular Hemoglobin 26.0 pg (27.0-33.0); Mean Corpuscular Volume 80.7 fL (80.0-98.0); NRBC Abs Auto 0.000 X10*3/uL (0.0-0.012); NRBC Pct Auto 0.0 /100WBC (0.0-0.2); Platelet Count 378 X10*3/uL (160-400); Red Blood Count 4.57 X10*6/uL (4.20-5.50); White Blood Count 9.6 X10*3/uL (4.8-10.8)
[2025-01-18 04:36] LABS: Alanine Aminotransferase 21 U/L (0-31); Albumin Level 4.2 g/dL (3.5-5.0); Alkaline Phosphatase 90 U/L (39-117); Anion Gap 12 (12-20); Aspartate Amino Transferase 20 U/L (5-31); Blood Urea Nitrogen 9 mg/dL (9-16); Calcium 8.8 mg/dL (8.4-10.2); Carbon Dioxide 23 mmol/L (22-29); Chloride 107 mmol/L (96-108); Creatinine Clr Calc Pharmacy 178.5; Estimated Glomerular Filt Rate > 60; Lipase 22 U/L (8-78); Potassium 4.3 mmol/L (3.3-5.1); Sodium 138 mmol/L (135-145); Total Protein 7.5 g/dL (6.5-8.0)
[2025-01-18 04:37] LABS: Appearance Urine Clear; Glucose Urine UA Negative (Negative); PH 6.5 (5.0-9.0); Specific Gravity - Urine 1.010 (1.005-1.025); UMIC TRIGGER UACC YES
[2025-01-18 06:00] VITALS: BP 130/92; PULSE 113; RESP 20; TEMP 36.9; O2SAT 99
--- NOTE | 2025-01-18 08:02 | ED_ITS ---
HPI - General Adult General Chief complaint: Abdominal Pain Stated complaint: right sided pain Time Seen by Provider: 01/18/25 08:02 History of Present Illness ED Provider: Uli MASCORRO narrative: The patient is a 24-year-old female. She has a history of passing a kidney stone a few years ago. She says that she believes she has had a known intrarenal right-sided kidney stone. She says that yesterday evening she developed right flank pain that feels very similar to the pain she experienced with her previous kidney stone passage. She was very uncomfortable and came to the emergency room. Related Data Previous Rx's ?Medication ?Instructions ?Recorded cyclobenzaprine 10 mg tablet 10 mg PO TID PRN muscle s pasm #20 12/28/23 tabs acetaminophen 500 mg capsule 1,000 mg (2 x 500 mg) PO Q8H PRN 01/18/25 fever or pain #14 caps cyclobenzaprine 10 mg tablet 10 mg PO TID PRN muscle s pasm #14 01/18/25 tabs ibuprofen 400 mg tablet 400 mg PO Q6H PRN pain #14 t abs 01/18/25 Allergies Allergy/AdvReac Type Severity Reaction Status Date / Time No Known Allergies (No Known Allergy Verified 01/18/25 03:25 Allergies*) [facility] Past Medical History Medical History GERD (gastroesophageal reflux disease) Nexplanon in place Depression Anxiety Anemia Appendicitis Social History Social History Household Members: Family Household Members Other:: reports her best-friend sometimes lives with family Alcohol intake: never Patient Tobacco Use Status: Current everyday Tobacco user Tobacco use type: Cigarette Substance Use Type: Marijuana Physical Exam ED Vital Signs: Vital Signs - 24 hr 01/18/25 03:24 01/18/25 06:00 01/18/25 08:27 Temperature 98.6 F 98.4 F 97.6 F Pulse Rate 110 H 113 H 94 Respiratory Rate 16 20 16 Blood Pressure 124/76 130/92 H 124/65 Pulse Oximetry 98 99 99 Oxygen Delivery Method Room Air Room Air Room Air 01/18/25 10:25 Temperature 97.6 F Pulse Rate 94 Respiratory Rate 16 Blood Pressure 124/65 Pulse Oximetry 99 Oxygen Delivery Method Room Air BMI result Body Mass Index 42.9 Const Other: The patient is awake and alert. She looks somewhat uncomfortable but not severely so. Orientation/consciousness: patient oriented x3 HENMT Other: The face is symmetrical. ?Mucous membranes moist. Eyes Other: Pupils are round equal, conjunctivae are clear, extraocular movements intact Neck Neck: Yes normal visual inspection and Yes full ROM Resp Effort & Inspection: normal respiratory effort Auscultation: clear to auscultation bilaterally Cardio Rate: regular rate Rhythm: regular rhythm Heart sounds: S1 normal heart sound present and S2 normal heart sound present GI Other: The abdomen was soft. Possibly some right sided tenderness, mostly in the right upper quadrant. No rebound or guarding. No true Esposito's sign Back/Spine/Pelvis Other: There seemed to be some right-sided CVA percussion tenderness. Skin Other: Skin is dry and unremarkable Neuro General: patient oriented x3, tone normal, moves all extremities, no focal motor deficits and CN's II-XI intact bilaterally Extrem Other: No pitting edema of the extremities. No asymmetry. No calf tenderness. Medications Administered Discontinued Medications Generic Name Dose Route Start Last Admin Trade Name Kim PRN Reason Stop Dose Admin Droperidol 0.625 mg 01/18/25 08:08 01/18/25 08:23 Droperidol 5 Mg/2 Ml Vial IVPUSH 01/18/25 08:09 0.625 mg ONCE ONE Administration Sodium Chloride 1,000 mls @ 999 mls/hr 01/18/25 08:15 01/18/25 09:30 Ns IV 01/18/25 09:15 Infused .Q1H1M JEFF Infusion Ketorolac Tromethamine 15 mg 01/18/25 08:08 01/18/25 08:23 Ketorolac Tromethamine 15 Mg/Ml Vial IVPUSH 01/18/25 08:09 15 mg ONCE ONE Administration Medical Decision Making Medical Decision Making [facility] Narrative: The patient is a 24-year-old female who presents with a 1 day history of right- sided back pain that she thinks is similar to pain she had with a kidney stone a few years ago. She had a CT scan last year that showed a 3 mm right-sided intrarenal stone. She does not have a significant amount of blood in her urine today. A retroperitoneal ultrasound shows a right sided 3 mm intrarenal stone. No hydronephrosis. Normal ureteral jets bilaterally. My overall impression is that the patient probably does not have acute ureteral colic today. I suspect that the 3 mm stone on today's ultrasound is the same stone as was previously seen a year ago in the right kidney. The patient felt better after Toradol. She I explained that I do not think this was kidney stone pain. She then said that she has been doing a lot of activities which might have caused some back injury. Perhaps this is musculoskeletal pain. She was offered a right upper quadrant ultrasound but she did not wish to stay in the emergency room since she was feeling better after the Toradol. She will be discharged with prescriptions for ibuprofen, acetaminophen, and cyclobenzaprine for presumed muscle pain. She should return if worse. Lab Data 01/18/25 03:54 01/18/25 03:54 Labs: Lab Results 01/18/25 01/18/25 Range/Units 03:54 04:30 WBC 9.6 (4.8-10.8) X10*3/uL RBC 4.57 (4.20-5.50) X10*6/uL Hgb 11.9 L (12.0-16.0) g/dl Hct 36.9 L (37.0-47.0) % MCV 80.7 (80.0-98.0) fL MCH 26.0 L (27.0-33.0) pg MCHC 32.2 (31.0-35.0) g/dl RDW 14.8 (11.0-16.0) % Plt Count 378 (160-400) X10*3/uL MPV 9.9 (9.4-12.3) fL Immature Gran % (Auto) 0.3 (0.0-0.4) % Neut % (Auto) 56.1 (45-73) % Lymph % (Auto) 32.3 (20-40) % [place] % (Auto) 7.3 (2-11) % Eos % (Auto) 3.3 (0-4) % Baso % (Auto) 0.7 (0-2) % Lymph # (Auto) 3.1 (1.2-4.9) X10*3/uL [place] # (Auto) 0.7 (0.1-1.2) X10*3/uL Eos # (Auto) 0.3 (0.0-0.4) X10*3/uL Baso # (Auto) 0.1 (0.0-0.2) X10*3/uL Abs Immat Gran (auto) 0.03 (0.00-0.03) X10*3/uL Absolute Neuts (auto) 5.4 (2.0-8.3) x10*3/uL Absolute Nucleated RBC 0.000 (0.0-0.012) X10*3/uL Nucleated RBC % (auto) 0.0 (0.0-0.2) /100WBC Sodium 138 (135-145) mmol/L Potassium 4.3 (3.3-5.1) mmol/L Chloride 107 (96-108) mmol/L Carbon Dioxide 23 (22-29) mmol/L Anion Gap 12 (12-20) BUN 9 (9-16) mg/dL Creatinine 0.61 (0.5-1.4) mg/dL Estim Creat Clear Calc 178.5 Estimated GFR > 60 Random Glucose 121 H (60-115) mg/dL Calcium 8.8 (8.4-10.2) mg/dL Total Bilirubin 0.3 (0.0-1.0) mg/dL AST 20 (5-31) U/L ALT 21 (0-31) U/L Alkaline Phosphatase 90 (39-117) U/L Total Protein 7.5 (6.5-8.0) g/dL Albumin 4.2 (3.5-5.0) g/dL Lipase 22 (8-78) U/L Beta HCG, Quant < 2 mIU/mL Urine Color Yellow Urine Appearance Clear Urine pH 6.5 (5.0-9.0) Ur Specific [place] 1.010 (1.005-1.025) Urine Protein Negative (Neg-Trace) mg/dL Urine Glucose (UA) Negative (Negative) mg/dL Urine Ketones Negative (Negative) mg/dL Urine Blood Negative (Negative) Urine Nitrite Negative (Negative) Ur Leukocyte Esterase Trace H (Negative) Urine RBC 0-2 (0-2) /HPF Urine WBC 0-5 (0-5) /HPF Ur Squamous Epith Cells 3-5 (0-2) /HPF Urine Bacteria Trace (None Seen) Hyaline Casts 0-2 (0-2) /LPF Discharge Plan Discharge Clinical Impression: Acute right flank pain Patient Disposition: Home, Self-Care Additional Instructions: Your ultrasound today shows that you have a kidney stone with a in your right kidney. This stone is 3 mm in diameter. The stone is within the kidney itself and is not blocking the ureter. Kidney stones cause symptoms when they have left the kidney and go into the ureter and block the tube of the ureter. Your CAT scan from December of 2023 showed a 3 mm stone in the right kidney also. I suspect that this is the same stone. Therefore I think your pain today is probably not related to a kidney stone blocking the ureter. Additionally you do not have any significant amount of blood in your urine. Kidney stones usually cause blood in the urine. It is therefore possible that this pain is more likely to be muscular pain. You may use ibuprofen and acetaminophen as needed for pain. Cyclobenzaprine as well if necessary. No driving on cyclobenzaprine as it can be sedating. Please follow up with your regular doctor. Return to the emergency room if significantly worse. Prescriptions: New cyclobenzaprine 10 mg tablet 10 mg PO TID PRN (Reason: muscle spasm) Qty: 14 0RF ibuprofen 400 mg tablet 400 mg PO Q6H PRN (Reason: pain) Qty: 14 0RF acetaminophen 500 mg capsule 1,000 mg PO Q8H PRN (Reason: fever or pain) Qty: 14 0RF No Action cyclobenzaprine 10 mg tablet 10 mg PO TID PRN (Reason: muscle spasm) Qty: 20 0RF Interventions: ED Discharge Assessment Last Done: 01/18/25 10:25 Discharge Date/Time: 01/18/25 10:25 Print Language: Amharic
[2025-01-18 08:27] VITALS: BP 124/65; PULSE 94; RESP 16; TEMP 36.4; O2SAT 99
--- NOTE | 2025-01-18 09:13 | PC.NURSE ---
patient resting quietly in bed, appears to be asleep. mother remains at bedside.
[2025-01-18 10:25] VITALS: BP 124/65; PULSE 94; RESP 16; TEMP 36.4; O2SAT 99
== END 2025-01-18 10:25 | disposition home or self-care (01) ==
PROVIDERS: Emergency Provider Emergency Medicine; PCP Internal Medicine Medical Oncology
DX: N20.0 Calculus of kidney (principal); M54.50 Low back pain, unspecified; R10.2 Pelvic and perineal pain; R11.0 Nausea; Z79.899 Other long term (current) drug therapy; F17.210 Nicotine dependence, cigarettes, uncomplicated
CPT/HCPCS: 36415; 76775; 80053; 81001; 81003; 83690; 84702; 85025; 96361; 96374; 96375; 99284; J1790; J1885

== ENCOUNTER → 2025-01-18 08:09 | Outpatient (BNV) | payer BC, SELFPAY | PROVIDERS: Emergency Provider Emergency Medicine; PCP Internal Medicine Medical Oncology; Visit Provider Radiology Diagnostic Radiology | DX: N20.0 Calculus of kidney (principal) | CPT/HCPCS: 76775 ==

== ENCOUNTER 2025-05-18 10:45 | Emergency (ER) | payer BC, SELFPAY ==
[2025-05-18 10:48] VITALS: BP 111/76; PULSE 100; RESP 18; TEMP 36.1; O2SAT 98; BMI 42.5
--- NOTE | 2025-05-18 10:54 | ED_ITS ---
HPI - General Adult General Chief complaint: Psychiatric Symptoms Stated complaint: SI Time Seen by Provider: 05/18/25 11:11 Related Data Home Medications ?Medication ?Instructions ?Recorded ?Confirmed No Known Home Meds 05/18/25 05/18/25 Allergies Allergy/AdvReac Type Severity Reaction Status Date / Time No Known Allergies (No Known Allergy Verified 05/18/25 10:50 Allergies*) PMFSH Past Medical History Medical History GERD (gastroesophageal reflux disease) Nexplanon in place Depression Anxiety Anemia Appendicitis Social History Social History Household Members: Family Household Members Other:: reports her best-friend sometimes lives with family Alcohol intake: never Patient Tobacco Use Status: Current everyday Tobacco user Tobacco use type: Cigarette Substance Use Type: Marijuana Advance Directives: No Advance Directives Information Provided: No Do you have a plan to hurt others: No Plan Physical Exam ED Vital Signs: Vital Signs - 24 hr 05/18/25 10:48 Temperature 97 F Pulse Rate 100 Respiratory Rate 18 Blood Pressure 111/76 Pulse Oximetry 98 Oxygen Delivery Method Room Air BMI result Body Mass Index 42.5 Course Course Course Narrative: RME: 25-year-old female presents to ED for suicidal thoughts. Patient has appointment with therapist tomorrow. Item number present. Labs care team consult placed. Medical Decision Making Lab Data 05/18/25 11:37 05/18/25 11:37 Labs: Lab Results 05/18/25 Range/Units 11:37 WBC 8.0 (4.8-10.8) X10*3/uL RBC 4.83 (4.20-5.50) X10*6/uL Hgb 12.3 (12.0-16.0) g/dl Hct 38.7 (37.0-47.0) % MCV 80.1 (80.0-98.0) fL MCH 25.5 L (27.0-33.0) pg MCHC 31.8 (31.0-35.0) g/dl RDW 14.6 (11.0-16.0) % Plt Count 381 (160-400) X10*3/uL MPV 9.7 (9.4-12.3) fL Immature Gran % (Auto) 0.6 H (0.0-0.4) % Neut % (Auto) 60.2 (45-73) % Lymph % (Auto) 29.4 (20-40) % [place] % (Auto) 6.8 (2-11) % Eos % (Auto) 2.4 (0-4) % Baso % (Auto) 0.6 (0-2) % Lymph # (Auto) 2.3 (1.2-4.9) X10*3/uL [place] # (Auto) 0.5 (0.1-1.2) X10*3/uL Eos # (Auto) 0.2 (0.0-0.4) X10*3/uL Baso # (Auto) 0.1 (0.0-0.2) X10*3/uL Abs Immat Gran (auto) 0.05 H (0.00-0.03) X10*3/uL Absolute Neuts (auto) 4.8 (2.0-8.3) x10*3/uL Absolute Nucleated RBC 0.000 (0.0-0.012) X10*3/uL Nucleated RBC % (auto) 0.0 (0.0-0.2) /100WBC Sodium 139 (135-145) mmol/L Potassium 4.1 (3.3-5.1) mmol/L Chloride 112 H (96-108) mmol/L Carbon Dioxide 20 L (22-29) mmol/L Anion Gap 11 L (12-20) BUN 11 (9-16) mg/dL Creatinine 0.57 (0.5-1.4) mg/dL Estim Creat Clear Calc 181.6 Estimated GFR > 60 Random Glucose 105 (60-115) mg/dL Calcium 9.1 (8.4-10.2) mg/dL Total Bilirubin 0.6 (0.0-1.0) mg/dL AST 18 (5-31) U/L ALT 17 (0-31) U/L Alkaline Phosphatase 83 (39-117) U/L Total Protein 7.7 (6.5-8.0) g/dL Albumin 4.3 (3.5-5.0) g/dL 25-OH Vitamin D Total 11.2 L (>30) ng/mL Ethyl Alcohol < 10 mg/dL Discharge Plan Discharge Clinical Impression: Depression Patient Disposition: Home, Self-Care Instructions: Depression (ED) Prescriptions: No Action No Known Home Meds Referrals: Wilmer Colbert MD [Primary Care Provider, Internal Medicine] - 05/22/25 Interventions: [place]-Suicide Risk Severity Scale Last Done: 05/18/25 11:19 ED Discharge Assessment Last Done: 05/18/25 13:05 Discharge Date/Time: 05/18/25 13:06 Print Language: Tamazight
--- NOTE | 2025-05-18 11:45 | PC.NURSE ---
Pt arrives tearful to the POD, she is oriented to the unit and the POC. Her mother is with her for support. she states she is always mildly +SI and does not want to be here.
[2025-05-18 11:46] LABS: MANUAL DIFF FLAG NO
[2025-05-18 11:48] LABS: Hematocrit 38.7 % (37.0-47.0); Hemoglobin 12.3 g/dl (12.0-16.0); Imm Gran Abs Auto 0.05 X10*3/uL (0.00-0.03); Imm Gran Pct Auto 0.6 % (0.0-0.4); Lymphocytes Absolute Auto 2.3 X10*3/uL (1.2-4.9); Mean Corpuscular HGB Conc 31.8 g/dl (31.0-35.0); Mean Corpuscular Hemoglobin 25.5 pg (27.0-33.0); Mean Corpuscular Volume 80.1 fL (80.0-98.0); NRBC Abs Auto 0.000 X10*3/uL (0.0-0.012); NRBC Pct Auto 0.0 /100WBC (0.0-0.2); Platelet Count 381 X10*3/uL (160-400); Red Blood Count 4.83 X10*6/uL (4.20-5.50); White Blood Count 8.0 X10*3/uL (4.8-10.8)
--- NOTE | 2025-05-18 11:55 | ED.PSYCH ---
HPI - Psych General Chief Complaint: Psychiatric Symptoms Stated Complaint: SI Time Seen by Provider: 05/18/25 11:11 Source: patient Mode of arrival: ambulatory Limitations: no limitations History of Present Illness HPI Narrative: This is a 25 years old female with a history of depression presented to emergency department complaining of increase in depression. She denies to be SI to me right now. She is here with the mother bed side. Onset (ago): day(s) Duration: constant History of same: Yes Relieving factors: none Exacerbating factors: none Associated psychiatric symptoms: depression Related Data Home Medications ?Medication ?Instructions ?Recorded ?Confirmed No Known Home Meds 05/18/25 05/18/25 Allergies Allergy/AdvReac Type Severity Reaction Status Date / Time No Known Allergies (No Known Allergy Verified 05/18/25 10:50 Allergies*) Review of Systems Constitutional: Constitutional: Reports no additional constitutional complaints ENT: Reports system reviewed and no additional complaints, except as documented Cardiovascular: Cardiovascular: Reports no additional cardiovascular complaints Psychiatric: Psychiatric: Reports as per HPI PMFSH Past Medical History Attestation statement: The following information was validated with the patient. Medical History GERD (gastroesophageal reflux disease) Nexplanon in place Depression Anxiety Anemia Appendicitis Social History Social History Household Members: Family Household Members Other:: reports her best-friend sometimes lives with family Alcohol intake: never Patient Tobacco Use Status: Current everyday Tobacco user Tobacco use type: Cigarette Substance Use Type: Marijuana Advance Directives: No Advance Directives Information Provided: No Do you have a plan to hurt others: No Plan Physical Exam Exam: Exam: No acute distress looks comfortable Vital Signs: Vital Signs: Last Vital Signs Temp 97 F 05/18/25 10:48 Pulse 100 05/18/25 10:48 Resp 18 05/18/25 10:48 BP 111/76 05/18/25 10:48 Pulse Ox 98 05/18/25 10:48 O2 Del Method Room Air 05/18/25 10:48 BMI result Body Mass Index 42.5 Const: General: cooperative Nutritional Appearance: well nourished Orientation/consciousness: patient oriented x3 Limitations: no limitations HEENT: Head: Yes normal to inspection Ears: hearing grossly normal bilaterally General nose exam: Normal external nose present Face and sinus: Yes normal facial exam Neck: Neck: Yes full ROM Chest: Chest palpation & inspection: normal inspection of the chest Resp: Effort & Inspection: normal respiratory effort Auscultation: clear to auscultation bilaterally Cardio: Jugular venous distension: no JVD Rate: regular rate Rhythm: regular rhythm GI: Inspection: Yes normal to inspection Palpation (GI): Soft to palpation, not firm, nontender and no guarding Auscultation: normal bowel sounds Skin: General skin exam: no rashes or lesions noted Lesions: no lesions Rashes: no rashes Hair: normal Neuro: General: patient oriented x3 Extrem: General: Yes normal to inspection and Yes full ROM Course Reevaluation(s) Reevaluation #1: Patient was seen by crisis team the patient was cleared for discharge no SI no HI at this time Time: 12:58 Medical Decision Making Medical Decision Making [facility] Narrative: Patient is here complaining of depression we will obtain crisis evaluation 12:58 seen by crisis cleared for discharge Differential Diagnosis Differential Diagnoses: The differential diagnosis associated with the presentation includes SI/depression/anxiety Lab Data [facility] Lab Attestation statement: I reviewed the patient's lab results. 05/18/25 11:37 12 11:37 Labs: Lab Results 05/18/25 Range/Units 11:37 WBC 8.0 (4.8-10.8) X10*3/uL RBC 4.83 (4.20-5.50) X10*6/uL Hgb 12.3 (12.0-16.0) g/dl Hct 38.7 (37.0-47.0) % MCV 80.1 (80.0-98.0) fL MCH 25.5 L (27.0-33.0) pg MCHC 31.8 (31.0-35.0) g/dl RDW 14.6 (11.0-16.0) % Plt Count 381 (160-400) X10*3/uL MPV 9.7 (9.4-12.3) fL Immature Gran % (Auto) 0.6 H (0.0-0.4) % Neut % (Auto) 60.2 (45-73) % Lymph % (Auto) 29.4 (20-40) % [place] % (Auto) 6.8 (2-11) % Eos % (Auto) 2.4 (0-4) % Baso % (Auto) 0.6 (0-2) % Lymph # (Auto) 2.3 (1.2-4.9) X10*3/uL [place] # (Auto) 0.5 (0.1-1.2) X10*3/uL Eos # (Auto) 0.2 (0.0-0.4) X10*3/uL Baso # (Auto) 0.1 (0.0-0.2) X10*3/uL Abs Immat Gran (auto) 0.05 H (0.00-0.03) X10*3/uL Absolute Neuts (auto) 4.8 (2.0-8.3) x10*3/uL Absolute Nucleated RBC 0.000 (0.0-0.012) X10*3/uL Nucleated RBC % (auto) 0.0 (0.0-0.2) /100WBC Sodium 139 (135-145) mmol/L Potassium 4.1 (3.3-5.1) mmol/L Chloride 112 H (96-108) mmol/L Carbon Dioxide 20 L (22-29) mmol/L Anion Gap 11 L (12-20) BUN 11 (9-16) mg/dL Creatinine 0.57 (0.5-1.4) mg/dL Estim Creat Clear Calc 181.6 Estimated GFR > 60 Random Glucose 105 (60-115) mg/dL Calcium 9.1 (8.4-10.2) mg/dL Total Bilirubin 0.6 (0.0-1.0) mg/dL AST 18 (5-31) U/L ALT 17 (0-31) U/L Alkaline Phosphatase 83 (39-117) U/L Total Protein 7.7 (6.5-8.0) g/dL Albumin 4.3 (3.5-5.0) g/dL 25-OH Vitamin D Total 11.2 L (>30) ng/mL Ethyl Alcohol < 10 mg/dL Independent Historian Clinical information obtained from an independent historian. History obtained from or confirmed by: Other (mother) Chronic Conditions Patient?s care impacted by: Other (depression) Discharge Plan Discharge Clinical Impression: Depression Qualifiers: Depression Type: major depressive disorder Major depression recurrence: recurrent Active/Remission status: currently active Major depression episode severity: moderate Qualified Code(s): F33.1 - Major depressive disorder, recurrent, moderate Patient Disposition: Home, Self-Care Instructions: Depression (ED) Prescriptions: No Action No Known Home Meds Referrals: Wilmer Colbert MD [Primary Care Provider, Internal Medicine] - 05/22/25 Interventions: Pope-Suicide Risk Severity Scale Last Done: 05/18/25 11:19 Print Language: [place]
[2025-05-18 12:04] LABS: Alanine Aminotransferase 17 U/L (0-31); Albumin Level 4.3 g/dL (3.5-5.0); Alkaline Phosphatase 83 U/L (39-117); Anion Gap 11 (12-20); Aspartate Amino Transferase 18 U/L (5-31); Blood Urea Nitrogen 11 mg/dL (9-16); Calcium 9.1 mg/dL (8.4-10.2); Carbon Dioxide 20 mmol/L (22-29); Chloride 112 mmol/L (96-108); Creatinine Clr Calc Pharmacy 181.6; Estimated Glomerular Filt Rate > 60; Potassium 4.1 mmol/L (3.3-5.1); Sodium 139 mmol/L (135-145); Total Protein 7.7 g/dL (6.5-8.0)
[2025-05-18 13:05] VITALS: BP 111/76; PULSE 100; RESP 18; TEMP 36.1; O2SAT 98
== END 2025-05-18 13:06 | disposition home or self-care (01) ==
PROVIDERS: Emergency Provider Emergency Medicine; PCP Internal Medicine Medical Oncology
DX: F32.A Depression, unspecified (principal); F41.9 Anxiety disorder, unspecified; F17.200 Nicotine dependence, unspecified, uncomplicated; Z71.6 Tobacco abuse counseling
CPT/HCPCS: 36415; 80053; 80307; 82306; 85025; 99284; S9485